=== PATIENT | male | born 1975 | race Caucasian/White ===

== ENCOUNTER 2017-12-27 18:00 | Emergency (ER) | payer OTHER ==
[2017-12-27 18:37] VITALS: O2SAT 99
[2017-12-27 21:05] VITALS: BP 130/79; PULSE 76; RESP 18; TEMP 98
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
--- NOTE | 2017-12-28 10:32 | RAD ---
Date of service: 12/27/2017 HISTORY: right rib injury COMPARISON: No prior. TECHNIQUE: Chest PA and lateral FINDINGS: LUNGS: No active pulmonary disease. PLEURA: No significant pleural effusion identified. No pneumothorax apparent. CARDIOVASCULAR: Normal. OSSEOUS STRUCTURES: No significant abnormalities. VISUALIZED UPPER ABDOMEN: Normal. OTHER FINDINGS: None. IMPRESSION: No active disease.
== END 2017-12-27 21:04 | disposition home or self-care (01) ==
LOC: H.ER 18:00
DX: S20.219A Contusion of unspecified front wall of thorax, initial encounter (principal); W22.8XXA Striking against or struck by other objects, initial encounter; Y93.01 Activity, walking, marching and hiking